=== PATIENT | female | born 1990 | race Caucasian/White ===

== ENCOUNTER 2018-03-27 02:40 | Inpatient (IN) | payer BC, SELFPAY ==
[2018-03-27] MEDS ORDERED: Metoclopramide HCl 10 MG/2 ML VIAL ONE (03:01)
[2018-03-27] MEDS ORDERED: Ketorolac Tromethamine 30 MG/ML VIAL ONE (03:01)
[2018-03-27] MEDS ORDERED: diphenhydrAMINE 50 MG/ML VIAL ONE (03:02)
[2018-03-27 03:27] LABS: #Eosinphils 0.1 thou/uL (0.0-0.7); #Lymphocytes 1.7 thou/uL (1.20-3.40); #Monocytes 0.8 thou/uL (0.11-0.59); #Neutrophils 6.1 thou/uL (1.40-6.50); %Basophils 0.5 % (0.0-1.0); %Eosinophils 1.1 % (0.0-10.0); %Lymphocytes 19.8 % (21.0-51.0); %Monocytes 9.1 % (0.0-10.0); %Neutrophils 69.4 % (42.0-75.0); Hemoglobin 13.9 g/dL (12.0-16.0); Mean Corpuscular HGB CONC 33.1 g/dL (32.0-36.0); Mean Corpuscular Hemoglobin 29.1 pg (27.0-31.0); Mean Corpuscular Volume 87.8 fL (78.0-98.0); Platelet Count 300 thou/uL (130-400); RBC Distribution Width 12.1 % (11.5-14.5); Red Blood Cell (RBC) Count 4.77 mill/uL (4.20-5.40); White Blood Cell (WBC) Count 8.7 thou/uL (4.8-10.8)
[2018-03-27 03:32] LABS: BHCG - Serum Negative (NEGATIVE); Pregs Control Background? CLEAR/WHITE (CLR/WHITE); Pregs Control Bar Appear? YES (CONTROL BAR)
[2018-03-27 03:41] LABS: ALT (SGPT) 120 U/L (8-55); AST (SGOT) 57 U/L (5-34); Albumin 4.7 g/dL (3.5-5.0); Alkaline Phosphatase 331 U/L (40-150); Anion Gap 15 mmol/L (10-20); BUN (Urea Nitrogen) 11 mg/dL (7.0-18.7); Bilirubin, Total 0.4 mg/dL (0.2-1.2); Calc. Creatinine Clearance 0 mL/min (70-130); Calcium 10.1 mg/dL (7.8-10.44); Carbon Dioxide 24 mmol/L (22-29); Chloride 106 mmol/L (98-107); Estimated GFR-MDRD 78; Globulin 3.1 g/dL (2.4-3.5); Glucose 93 mg/dL (70-105); Potassium 3.5 mmol/L (3.5-5.1); Protein, Total 7.8 g/dL (6.0-8.3); Sodium 141 mmol/L (136-145)
[2018-03-27 04:18] LABS: Bilirubin Negative (Negative); Blood, Urine Negative (Negative); Clarity CLEAR (Clear); Glucose, Urine (Dipstick) Negative (Negative); Leukocyte Moderate (Negative); Nitrite Positive (Negative); Protein, Urine (Dipstick) Negative (Neg-Trace); Specific Gravity, Urine 1.024 (1.002-1.036); Urobilinogen 0.2 mg/dL (0.2-1.0); pH, Urine 5.5 (5.0-9.0)
[2018-03-27 04:21] LABS: Bacteria/HPF 1+ HPF (None Seen); Hyaline Casts/LPF 0-3 HYALINE CAST LPF (0-3 Hyaline); Pathc Cast-AUWi Flag 0.14 (0-2.49); Squamous Epithelial 0-3 HPF (0-3); WBC/HPF 21-50 HPF (0-3)
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
[2018-03-27] MEDS ORDERED: Sodium Chloride 0.45% 1,000 ML IV SCH (06:00)
--- NOTE | 2018-03-27 09:03 | RAD ---
PORTABLE AP CHEST XRAY: DATE: 03/27/18. HISTORY: Chest pain. COMPARISON: None available. FINDINGS: Cardiac silhouette and pulmonary vasculature are within normal limits. The lungs are clear. Osseous structures are intact. IMPRESSION: No acute cardiopulmonary process. POS: [facility]
--- NOTE | 2018-03-27 09:18 | RAD ---
FOUR VIEWS CERVICAL SPINE: DATE: 03/27/18. HISTORY: Neck pain. FINDINGS: C1 to the cervicothoracic junction is seen on the lateral view. There is straightening of the normal cervical lordotic curvature. The patient is in a neck collar and this is likely positional in origin . Vertebral body heights and intervertebral disk spaces are within normal limits. No fracture or benavides bluxation is seen involving the cervical spine. Prevertebral soft tissues are within normal limits. Incidental note is made of a right-sided cervical rib. IMPRESSION: No fracture or subluxation involving the cervical spine. POS: [facility]
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
[2018-03-27 11:31] LABS: HBSAg Index 0.18 S/CO (0-0.99); Hep A IgM AB Non-Reactive (NonReactive); Hep A IgM S/CO 0.16 S/CO (0-0.79); Hep B Core Total Ab Non-Reactive (NonReactive); Hep B Core Total Index 0.09 S/CO (0-0.79); Hep B Surf Ag Non-Reactive S/CO (NonReactive); Hep C IgG Ab Non-Reactive (NonReactive); Hep C Index 0.06 S/CO (0-0.79); Hepatitis B Core IGM Abs Non-Reactive (NonReactive)
[2018-03-27 12:38] LABS: Hep B Surf AB Reactive (NonReactive)
[2018-03-27 12:39] LABS: HBSAB Concentration 94.37 mIU/mL
[2018-03-27 13:15] VITALS: BMI 38.9
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
[2018-03-27] MEDS: Ibuprofen 200 MG TAB PO PRN (20:24)
[2018-03-28 04:13] LABS: #Basophils 0.1 thou/uL (0.0-0.2); #Eosinphils 0.2 thou/uL (0.0-0.7); #Lymphocytes 2.3 thou/uL (1.20-3.40); #Monocytes 0.7 thou/uL (0.11-0.59); #Neutrophils 3.9 thou/uL (1.40-6.50); %Basophils 0.8 % (0.0-1.0); %Lymphocytes 31.5 % (21.0-51.0); %Monocytes 9.9 % (0.0-10.0); %Neutrophils 54.7 % (42.0-75.0); Hemoglobin 13.1 g/dL (12.0-16.0); Mean Corpuscular HGB CONC 33.3 g/dL (32.0-36.0); Mean Corpuscular Hemoglobin 29.3 pg (27.0-31.0); Mean Corpuscular Volume 88.1 fL (78.0-98.0); Mean Platelet Volume 7.6 fL (7.4-10.4); Platelet Count 255 thou/uL (130-400); RBC Distribution Width 12.2 % (11.5-14.5); Red Blood Cell (RBC) Count 4.46 mill/uL (4.20-5.40); White Blood Cell (WBC) Count 7.1 thou/uL (4.8-10.8)
[2018-03-28 04:43] LABS: ALT (SGPT) 73 U/L (8-55); AST (SGOT) 28 U/L (5-34); Alkaline Phosphatase 246 U/L (40-150); Anion Gap 11 mmol/L (10-20); BUN (Urea Nitrogen) 13 mg/dL (7.0-18.7); Bilirubin, Total 0.3 mg/dL (0.2-1.2); Calc. Creatinine Clearance 150 mL/min (70-130); Calcium 9.3 mg/dL (7.8-10.44); Carbon Dioxide 25 mmol/L (22-29); Chloride 108 mmol/L (98-107); Estimated GFR-MDRD 77; Globulin 2.5 g/dL (2.4-3.5); Glucose 89 mg/dL (70-105); Potassium 3.9 mmol/L (3.5-5.1); Protein, Total 6.5 g/dL (6.0-8.3); Sodium 140 mmol/L (136-145)
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
[2018-03-28] MEDS ORDERED: Indomethacin 50 MG SUPP ONE (08:37)
[2018-03-28] MEDS ORDERED: Iothalamate Meglumine 60% 50 ML VIAL FS ONE (08:37)
[2018-03-28] MEDS ORDERED: Fentanyl 100 MCG/2 ML VIAL ONE (09:00)
[2018-03-28] MEDS ORDERED: Midazolam HCl 2 mg/2 ml Vial ONE (09:11)
--- NOTE | 2018-03-28 12:31 | OP ---
DATE OF PROCEDURE: 03/28/2018 PROCEDURE: Endoscopic retrograde cholangiopancreatography with sphincterotomy and removal of foreign body and stone extraction with balloon and stone crushing with the basket. PREOPERATIVE DIAGNOSIS: Retained biliary stent with elevated liver tests. OPERATIVE NOTE: Informed consent was obtained from the patient. She was sedated with general anesth esia and placed in the prone position. This duodenoscope was advanced easily to the second portion o f the duodenum. The ampulla was identified with evidence of prior sphincterotomy and the old stent w as protruding. The stent was grasped with a snare and pulled out through the patient's mouth. There is stone and debris occluding the stent. The stent appeared to be a 10-Malaysian 7 cm stent. It was r emoved intact. The duodenoscope was reinserted and cholangiogram was performed. The common bile sharri t was dilated to 13 mm proximally with dilated extrahepatic ducts. The intrahepatic ducts were unrem arkable. There were multiple filling defects within the common bile duct. The sphincterotomy was sc arred and somewhat at the apex and the sphincterotomy was then extended with the sphincterotome a few millimeters. A 12 mm balloon was then used to extract a couple of black pigment stones from the dis susan common bile duct. The 12 mm balloon passed through the sphincterotomy. The balloon was unable t o sweep the larger stone out. The basket was then placed and the stone was grasped with a basket and broken and crushed. The stone fragments were then grabbed with the basket wires and still could not be pulled through the sphincterotomy. Another stone fragment was then grabbed with the basket and a gain crush. Then, stone fragments could be pulled out with the basket wires and then finally a 15 mm balloon was used to sweep the duct clear. Multiple more stone fragments were swept with a balloon. The 15 mm balloon did sweep all the way through the common hepatic and common bile duct. The 15 mm balloon swept through the sphincterotomy with minimal resistance. There was good drainage of contras t from the duct. Occlusion cholangiogram confirmed the duct to be clear. The air and fluid was suct ioned from the patient's stomach and the procedure was completed. IMPRESSION: 1. Retained biliary stent removed intact with snare. 2. Cholangiogram showing multiple stones, and common bile duct and common hepatic duct was dilated u p to a 13 mm. 3. The sphincterotomy was extended a few centimeters where this was scarred down slightly. 4. Multiple large stones both yellow cholesterol stones and black pigment stones were removed. The larger stones had to be crushed with the basket and ultimately the duct to be swept clear with a 15 m m balloon. Occlusion cholangiogram confirmed the duct to be clear. The patient did receive fluid julian alexandra and rectal indomethacin. RECOMMENDATIONS: She should be okay to discharge home today if there are no procedure complications. If she does have post-procedure pain, then I will check a lipase and give fluids and follow her ivy er tests.
[2018-03-28] MEDS ORDERED: Lactated Ringer's 1,000 ML IV SCH (12:45)
[2018-03-28] MEDS ORDERED: Ondansetron HCl/PF 4 MG/2 ML Vial ONE (12:52)
[2018-03-28] MEDS ORDERED: Glycopyrrolate 0.2 MG/ML 5 ML SYRINGE ONE (12:52)
[2018-03-28] MEDS ORDERED: PHENYLEPHRINE-NS 100 MCG/ML 10 ML SYRINGE ONE (12:52)
[2018-03-28] MEDS ORDERED: PROPOFOL 200 MG/20 ML VIAL ONE (12:52)
[2018-03-28] MEDS ORDERED: Lidocaine 1% PF 5 ML VIAL ONE (12:52)
--- NOTE | 2018-03-28 14:53 | RAD ---
ERCP: HISTORY: Not provided. COMPARISON: 07/06/2016 FINDINGS: Intraoperative fluoroscopy is provided for Dr. Leiva. A total of 80 images demonstrate retrograde op acification of a prominent common bile duct. The intrahepatic biliary system is slightly prominent. The gallbladder is surgically absent, and the prominence of the intrahepatic and extrahepatic biliar y system may be due to reservoir effect. Of note, the first image does demonstrate a metallic device in the region of the sphincter of Oddi, which may be used for access. Correlate clinically. IMPRESSION: Fluoroscopy as above. POS: [facility]
[2018-03-28] MEDS: Lactated Ringer's 1,000 ML IV SCH ×3 (15:26→23:43)
[2018-03-28] MEDS ORDERED: Ondansetron HCl/PF 4 MG/2 ML Vial IVP SCH (19:15)
[2018-03-28] MEDS ORDERED: Sodium Chloride 0.9% 1,000 ML IV SCH (21:45)
[2018-03-29] MEDS: Morphine 4 MG/ML VIAL SLOW IVP PRN ×2 (01:09→07:03)
[2018-03-29] MEDS: Ondansetron HCl/PF 4 MG/2 ML Vial IVP PRN ×2 (02:35→10:20)
[2018-03-29] MEDS: Lactated Ringer's 1,000 ML IV SCH ×4 (02:36→19:58)
[2018-03-29] MEDS: Ibuprofen 200 MG TAB PO PRN (02:36)
[2018-03-29 05:47] LABS: #Eosinphils 0.1 thou/uL (0.0-0.7); #Lymphocytes 1.6 thou/uL (1.20-3.40); #Monocytes 0.7 thou/uL (0.11-0.59); #Neutrophils 5.4 thou/uL (1.40-6.50); %Basophils 0.4 % (0.0-1.0); %Eosinophils 1.2 % (0.0-10.0); %Monocytes 8.8 % (0.0-10.0); %Neutrophils 69.5 % (42.0-75.0); Hemoglobin 11.6 g/dL (12.0-16.0); Mean Corpuscular HGB CONC 33.7 g/dL (32.0-36.0); Mean Corpuscular Hemoglobin 29.8 pg (27.0-31.0); Mean Corpuscular Volume 88.3 fL (78.0-98.0); Mean Platelet Volume 7.3 fL (7.4-10.4); Platelet Count 216 thou/uL (130-400); Red Blood Cell (RBC) Count 3.88 mill/uL (4.20-5.40); White Blood Cell (WBC) Count 7.8 thou/uL (4.8-10.8)
[2018-03-29 06:02] LABS: ALT (SGPT) 61 U/L (8-55); AST (SGOT) 27 U/L (5-34); Albumin 3.5 g/dL (3.5-5.0); Alkaline Phosphatase 216 U/L (40-150); Anion Gap 9 mmol/L (10-20); BUN (Urea Nitrogen) 7 mg/dL (7.0-18.7); Bilirubin, Total 0.5 mg/dL (0.2-1.2); Calc. Creatinine Clearance 176 mL/min (70-130); Calcium 8.4 mg/dL (7.8-10.44); Carbon Dioxide 26 mmol/L (22-29); Chloride 108 mmol/L (98-107); Estimated GFR-MDRD Greater than 90; Globulin 2.3 g/dL (2.4-3.5); Glucose 87 mg/dL (70-105); Lipase 825 U/L (8-78); Potassium 3.6 mmol/L (3.5-5.1); Protein, Total 5.8 g/dL (6.0-8.3); Sodium 139 mmol/L (136-145)
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
[2018-03-29] MEDS ORDERED: SUMAtriptan Succinate 25 MG TAB PO SCH (11:30)
[2018-03-29] MEDS ORDERED: Morphine 10 MG/ML VIAL SLOW IVP SCH (11:30)
[2018-03-29] MEDS ORDERED: Morphine 4 MG/ML VIAL SLOW IVP PRN (11:42)
[2018-03-29] MEDS ORDERED: Promethazine HCl 25 MG/ML VIAL IM/IV PRN (14:08)
--- NOTE | 2018-03-29 14:19 | PRG ---
DATE OF SERVICE: 03/29/2018 SUBJECTIVE: Ms. Dunn has ongoing pain more in her back to epigastric region. Some nausea after rec eiving IV pain medication. Her pain medicine is not adequately controlling her pain at this point. OBJECTIVE: VITAL SIGNS: Temperature is 99.2, pulse 90, blood pressure 121/81. GENERAL: She is in no acute distress, alert and oriented x3. HEENT: Eyes have no scleral icterus. Oropharynx is clear without lesions. NECK: No cervical or supraclavicular lymphadenopathy. LUNGS: Clear to auscultation bilaterally. HEART: Regular rate and rhythm. ABDOMEN: Soft, mild tenderness in the epigastric region without guarding. Bowel sounds are present. She has hypoactive bowel sounds. EXTREMITIES: No lower extremity edema. IMPRESSION: 1. Choledocholithiasis and biliary foreign body with retained biliary stent from a year and a half a go. She had large hard stones in her bile duct that required crushing with the basket before that co uld be removed. Her sphincterotomy was extended and ultimately her bile duct was cleared of stones w ith balloon sweep and basket removal. 2. Post-ERCP pancreatitis. She has received several liters of lactated Ringer's including with the procedure and immediately following. She is having significant pain that we have been unable to adeq uately control her pain with p.r.n. IV morphine. RECOMMENDATIONS: 1. Anesthesiology consultation for pain pump and pain control. 2. Continue aggressive IV fluids. 3. We would continue n.p.o. status for now given her hypoactive bowel sounds and ongoing pain that I would been unable to control at this point. 4. Add enoxaparin for DVT prophylaxis and incentive spirometry. 5. We will add a proton pump inhibitor in light of the NSAIDs and upper abdominal pain as well.
[2018-03-29] MEDS ORDERED: diphenhydrAMINE 50 MG/ML VIAL IM/IV PRN (15:38)
[2018-03-29] MEDS ORDERED: diphenhydrAMINE 25 MG CAP PO PRN (15:38)
[2018-03-29] MEDS ORDERED: Ondansetron HCl/PF 4 MG/2 ML Vial IVP PRN (15:38)
[2018-03-29] MEDS ORDERED: Zolpidem Tartrate 5 MG TAB PO PRN (15:38)
[2018-03-29] MEDS ORDERED: HYDROmorphone 10 mg/100 ml CADD IV PRN (15:38)
[2018-03-29] MEDS ORDERED: Naloxone HCl 0.4 mg/ml Vial IV PRN (15:38)
[2018-03-29] MEDS ORDERED: Promethazine HCl 25 MG in Sodium Chloride 0.9% 100 ML IVPB PRN (15:46)
[2018-03-29] MEDS: Promethazine HCl 25 MG/ML VIAL IM PRN ×2 (15:55→20:40)
[2018-03-29] MEDS: Enoxaparin Sodium 40 MG/0.4 ML SYRINGE SC SCH (15:56)
[2018-03-29] MEDS: Pantoprazole 40 MG VIAL IVP SCH (19:58)
[2018-03-30] MEDS: Lactated Ringer's 1,000 ML IV SCH ×3 (00:47→13:08)
[2018-03-30 05:11] LABS: #Eosinphils 0.1 thou/uL (0.0-0.7); #Lymphocytes 1.6 thou/uL (1.20-3.40); #Monocytes 0.5 thou/uL (0.11-0.59); %Basophils 0.4 % (0.0-1.0); %Eosinophils 1.9 % (0.0-10.0); %Lymphocytes 26.2 % (21.0-51.0); %Monocytes 8.1 % (0.0-10.0); %Neutrophils 63.4 % (42.0-75.0); Hemoglobin 11.8 g/dL (12.0-16.0); Mean Corpuscular HGB CONC 33.4 g/dL (32.0-36.0); Mean Corpuscular Hemoglobin 29.4 pg (27.0-31.0); Mean Corpuscular Volume 88.1 fL (78.0-98.0); Mean Platelet Volume 7.4 fL (7.4-10.4); Platelet Count 215 thou/uL (130-400); RBC Distribution Width 11.9 % (11.5-14.5); Red Blood Cell (RBC) Count 4.02 mill/uL (4.20-5.40); White Blood Cell (WBC) Count 6.2 thou/uL (4.8-10.8)
[2018-03-30 05:22] LABS: ALT (SGPT) 45 U/L (8-55); AST (SGOT) 21 U/L (5-34); Albumin 3.5 g/dL (3.5-5.0); Alkaline Phosphatase 187 U/L (40-150); Anion Gap 13 mmol/L (10-20); BUN (Urea Nitrogen) 7 mg/dL (7.0-18.7); Bilirubin, Total 0.5 mg/dL (0.2-1.2); Calc. Creatinine Clearance 181 mL/min (70-130); Calcium 8.7 mg/dL (7.8-10.44); Carbon Dioxide 24 mmol/L (22-29); Chloride 105 mmol/L (98-107); Estimated GFR-MDRD Greater than 90; Globulin 2.3 g/dL (2.4-3.5); Glucose 60 mg/dL (70-105); Lipase 190 U/L (8-78); Potassium 3.6 mmol/L (3.5-5.1); Protein, Total 5.8 g/dL (6.0-8.3); Sodium 138 mmol/L (136-145)
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
--- NOTE | 2018-03-30 13:45 | PRG ---
DATE OF SERVICE: 03/30/2018 SUBJECTIVE: Ms. Dunn has no pain today. No nausea, vomiting or fever. She had a loose stool this morning. No blood in the stool. OBJECTIVE: VITAL SIGNS: Temperature 99.0, pulse 89, blood pressure 138/75. GENERAL: She is in no acute distress. She is alert and oriented x3. HEENT: Eyes have no scleral icterus. Oropharynx is clear, without lesions. LUNGS: Clear to auscultation bilaterally. HEART: Regular rate and rhythm without murmur. ABDOMEN: Soft, nontender, nondistended. Bowel sounds are present. EXTREMITIES: No lower extremity edema. IMPRESSION: 1. Mild post-ERCP pancreatitis appears to be resolving. She is pain free now. 2. Choledocholithiasis and biliary foreign body, status post endoscopic retrograde cholangiopancreat ography and sphincterotomy and balloon sweep and lithotripsy of the duct. Her liver function tests a re improving. RECOMMENDATIONS: 1. Advance to clear liquid diet for lunch. If she tolerates that well, then she can advance to a lo w fat diet for supper. 2. Wean off the Dilaudid SENIOR CONTRACTS MANAGER and transitioned to oral pain medication. She should not continue to r equire significant opioid use at this point. 3. I would anticipate discharge home tomorrow.
[2018-03-30] MEDS ORDERED: HYDROcodone/Acetaminophen 10/325 mg Tablet PO PRN (14:40)
[2018-03-30] MEDS ORDERED: traMADol HCl 50 MG TAB PO PRN ×2 (14:41)
[2018-03-30] MEDS ORDERED: Fentanyl 100 MCG/2 ML VIAL SLOW IVP PRN (14:42)
[2018-03-30] MEDS: HYDROcodone/Acetaminophen 10/325 mg Tablet PO PRN (15:48)
[2018-03-30] MEDS: Enoxaparin Sodium 40 MG/0.4 ML SYRINGE SC SCH (15:49)
[2018-03-30] MEDS: Pantoprazole 40 MG VIAL IVP SCH (20:08)
[2018-03-31] MEDS: HYDROcodone/Acetaminophen 10/325 mg Tablet PO PRN (00:54)
[2018-03-31] MEDS: Ibuprofen 200 MG TAB PO PRN ×2 (03:10→14:14)
[2018-03-31] MEDS: Lactated Ringer's 1,000 ML IV SCH (03:11)
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
[2018-03-31 11:43] VITALS: BP 111/55; TEMP 98.8
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
== END 2018-03-31 15:16 | disposition home or self-care (01) | DRG 444 ==
LOC: ERS 02:40 → OBSVTOIN 05:16 → SURG A 05:16
PROVIDERS: ADMIT Family Medicine; ATTEND Family Medicine
PROC: 0FPB8DZ Removal of Intraluminal Device from Hepatobiliary Duct, Via Natural or Artificial Opening Endoscopic (ICD-10-PCS; principal; 2018-03-28)
PROC: 0FCC8ZZ Extirpation of Matter from Ampulla of Vater, Via Natural or Artificial Opening Endoscopic (ICD-10-PCS; 2018-03-28)
PROC: 0FC78ZZ Extirpation of Matter from Common Hepatic Duct, Via Natural or Artificial Opening Endoscopic (ICD-10-PCS; 2018-03-28)
PROC: 0FC98ZZ Extirpation of Matter from Common Bile Duct, Via Natural or Artificial Opening Endoscopic (ICD-10-PCS; 2018-03-28)
PROC: 0F7C8ZZ Dilation of Ampulla of Vater, Via Natural or Artificial Opening Endoscopic (ICD-10-PCS; 2018-03-28)
PROC: 0F778ZZ Dilation of Common Hepatic Duct, Via Natural or Artificial Opening Endoscopic (ICD-10-PCS; 2018-03-28)
PROC: 0F798ZZ Dilation of Common Bile Duct, Via Natural or Artificial Opening Endoscopic (ICD-10-PCS; 2018-03-28)
PROC: BF101ZZ Fluoroscopy of Bile Ducts using Low Osmolar Contrast (ICD-10-PCS; 2018-03-28)
DX: K80.51 Calculus of bile duct without cholangitis or cholecystitis with obstruction (principal); K85.90 Acute pancreatitis without necrosis or infection, unspecified; E11.9 Type 2 diabetes mellitus without complications; I10 Essential (primary) hypertension; K76.0 Fatty (change of) liver, not elsewhere classified; F32.9 Major depressive disorder, single episode, unspecified; F41.9 Anxiety disorder, unspecified; Z79.4 Long term (current) use of insulin; V89.2XXA Person injured in unspecified motor-vehicle accident, traffic, initial encounter
CPT/HCPCS: 36415; 71045; 72050; 72100; 74330; 80053; 80074; 81003; 81015; 83690; 84703; 85025; 86704; 86706; 96365; 96367; 96375; A4216; C9113; J1200; J1650; J1885; J1956; J2001; J2250; J2270; J2405; J2550; J2704; J2765; J3010; Q9961